=== PATIENT | male | born 1990 | race Caucasian/White ===

== ENCOUNTER 2017-01-03 07:45 | Emergency (ER) | payer OTHER ==
[~2017-01-03] VITALS: Ht 177.8 cm; Wt 113.0 kg
[2017-01-03 07:50] VITALS: Ht 177.8 cm; Wt 113.0 kg
[2017-01-03] MEDS ORDERED: KETOROLAC 30 MG INJ IM STA (08:08)
[2017-01-03] MEDS ORDERED: predniSONE 20 MG TAB PO ONE (08:30)
--- NOTE | 2017-01-03 09:09 | RADRPT ---
PROCEDURE: XR L-Spine. CLINICAL INDICATION: Low back pain. TECHNIQUE: AP, lateral, and cone down views of the lumbar spine were obtained. COMPARISON: None FINDINGS: The lumbar lordosis is maintained. The vertebral body and disk space heights are normal. No acute fracture or subluxation is seen. No paravertebral soft tissue abnormality is seen. IMPRESSION: Unremarkable lumbar spine series. RPTAT: HPNM Physician Felisa Date Time Electronically viewed and signed by Rohan Stack Physician on 01/03/2017 09:08 /
--- NOTE | 2017-01-03 09:42 | ERD ---
ER Documentation Chief Complaint Date/Time DATE: 01/03/17 TIME: 09:37 Chief Complaint BACK PAIN X 1 MONTH , WORSE TODAY HPI This is a 26-year-old male who presents to the emergency department today complaining of low back pain for the past month that got worse last night. Patient states he has numbness into his buttock. Patient states that one month ago he was at a [employer] and "felt a pinch". He also states he has some numbness there. States his pain is worse with sitting. Denies any fevers or chills, loss of bowel or bladder control. He has not taken any medication for the pain. ROS All systems reviewed and are negative except as per history of present illness. Medications Home Meds Active Scripts Cyclobenzaprine Hcl* (Cyclobenzaprine Hcl*) 10 Mg Tablet, 10 MG PO QHS, #7 TAB Prov:DOMINIC PAUL PA-C 01/03/17 Methylprednisolone* (Medrol* DOSE PACK) 4 Mg/Dose-Pack Tab.ds.pk, 4 MG PO . DIRECTED, #7 PACKET take as directed Prov:DOMINIC PAUL PA-C 01/03/17 Naproxen* (Naprosyn*) 500 Mg Tablet, 500 MG PO BID Y for PAIN AND/OR INFLAMMATION, #30 TAB Prov:DOMINIC PAUL PA-C 01/03/17 Hydrocodone/Acetaminophen ([place] 5-325 Tablet) 1 Each Tablet, 1 TAB PO Q6H Y for PAIN, #12 TAB Prov:DOMINIC PAUL PA-C 01/03/17 Allergies Allergies: Coded Allergies: No Known Allergy (Unverified , 01/03/17) PMhx/Soc Medical and Surgical Hx: pt denies Medical Hx, pt denies Surgical Hx Hx Alcohol Use: No Hx Substance Use: No Hx Tobacco Use: No Smoking Status: Never smoker Physical Exam Vitals Vital Signs Date Time Temp Pulse Resp B/P Pulse Ox O2 Delivery O2 Flow Rate FiO2 01/03/17 07:50 97.8 110 18 155/89 99 Physical Exam Const: Obese, no acute distress Head: Atraumatic Eyes: Normal Conjunctiva ENT: Normal External Ears, Nose and Mouth. Neck: Full range of motion..~ No meningismus. Resp: Clear to auscultation bilaterally Cardio: Regular rate and rhythm, no murmurs Skin: No petechiae or rashes Back: Lumbar spine midline tenderness. Bilateral paraspinal tenderness. Pain with straight leg raise of left leg. Pulses 2+. Distal neurovascularly intact. Good sensation. Ext: No cyanosis, or edema Neur: Awake and alert Psych: Normal Mood and Affect Results 24 hrs Current Medications Medications (Trade) Dose Ordered Sig/Pantera Route PRN Reason Start Time Stop Time Status Last Admin Dose Admin Ketorolac Tromethamine (Toradol) 30 mg ONCE STAT IM 01/03/17 08:08 01/03/17 08:10 DC 01/03/17 08:15 Prednisone (Prednisone) 60 mg ONCE ONCE PO 01/03/17 08:30 01/03/17 08:31 DC 01/03/17 08:14 Acetaminophen/ Hydrocodone Bitart ([place] (5/325)) 1 tab ONCE ONCE PO 01/03/17 10:00 01/03/17 10:01 Procedures/MDM This a 26-year-old male who presents to the emergency department today complaining of low back pain for the past month as well as some numbness down into his buttock. Patient was having some radicular symptoms and therefore did obtain lumbar spine films. Lumbar spine film is unremarkable. Vertebral body and disc space heights are normal. There is no acute fracture dislocation. Patient is afebrile and otherwise well-appearing. He has no loss of bowel or bladder control and have low suspicion for abscess or cauda equina syndrome Patient symptoms at this time is consistent with sprain versus strain versus disc pathology. Patient also has sciatica. Patient was given Toradol and oral prednisone here in the emergency department. Patient indicated pain had improved but it was still persistent. Patient was then given a [place]. Patient will be given a prescription for Naprosyn, [place], short course of prednisone and Flexeril for home. He is instructed to follow- up with a primary care physician for referral to orthopedics. At this time the patient is stable for discharge and outpatient management. Patient should follow up with their PCP in the next 1-2 days. They may return to the emergency department sooner for any persistent or worsening of symptoms. Patient understood and agreed with the plan. Departure Diagnosis: Primary Impression: Injury of back Encounter type: initial encounter Qualified Code: S39.92XA - Injury of back , initial encounter Condition: Fair PROUSE,DOMINIC M. PA-C Jan 03, 2017 09:41
[2017-01-03] MEDS ORDERED: NAPR-260 PO (09:52)
[2017-01-03] MEDS ORDERED: HYDR-906 PO (09:52)
[2017-01-03] MEDS ORDERED: MED4DP PO (09:53)
[2017-01-03] MEDS ORDERED: CYCL-319 PO (09:54)
[2017-01-03] MEDS ORDERED: HYDROCODONE/APAP (5/325) TAB PO ONE (10:00)
== END 2017-01-03 10:04 | disposition home or self-care (01) ==
LOC: FTE 07:45
DX: S39.92XA Unspecified injury of lower back, initial encounter (principal); X58.XXXA Exposure to other specified factors, initial encounter; Y92.9 Unspecified place or not applicable
CPT/HCPCS: 72100; 96372; J1885; J7512; Z7502; Z7610

== ENCOUNTER 2018-06-08 22:03 | Emergency (ER) | END 2018-06-09 02:07 | disposition home or self-care (01) ==

== ENCOUNTER 2018-11-07 19:26 | Emergency (ER) | payer OTHER ==
[~2018-11-07] VITALS: Wt 126.6 kg
[~2018-11-07 19:26] MED LIST: BACI28.34 TOP; CYCL10TA7 PO; ELIM TOP; HYDR-4011 PO; MED4DP PO; NAPR-985 PO
[2018-11-07] MEDS ORDERED: CIPR7.5D LEFT EAR (22:00)
[2018-11-07] MEDS ORDERED: AMOX1TAB10 PO (22:00)
[2018-11-07 22:50] VITALS: BP 136/82; PULSE 76; RESP 18
--- NOTE | 2018-11-08 01:37 | ERD ---
ER Documentation Chief Complaint Chief Complaint bib self, cc: left ear pain x 2 days HPI 27-year-old male presents emergency department complaining of left ear pain for the past 2 days. He denies any fevers. Denies any discharge. He has not taken any medications. Moderate in severity ROS All systems reviewed and are negative except as per history of present illness. Medications Home Meds Active Scripts Ciprofloxacin Hcl/Dexameth (Ciprodex Otic Suspension) 7.5 Ml Drops.susp, 4 DROP LEFT EAR BID for 7 Days, EA Prov:CHAVA REAL PA-C 11/07/18 Amoxicillin/Potassium Clav (Amox-Clav 875-125 mg Tablet) 875-125 mg Tab, 1 TAB PO BID for 10 Days, #20 TAB Prov:CHAVA REAL PA-C 11/07/18 Permethrin* (Elimite*) 5% Cr, 1 APPLIC TOP ONCE, #1 TUB Prov:CHRISTIAN SAINI PA-C 06/09/18 Bacitracin* (Bacitracin Zinc Oint*) 28.35 Gm Oint, 1 APPLIC TOP BID, #1 TUB APPLI TO Prov:CHRISTIAN SAINI PA-C 06/09/18 Cyclobenzaprine Hcl* (Cyclobenzaprine Hcl*) 10 Mg Tablet, 10 MG PO QHS, #7 TAB Prov:DOMINIC PAUL PA-C 01/03/17 Methylprednisolone* (Medrol* DOSE PACK) 4 Mg/Dose-Pack Tab.ds.pk, 4 MG PO . DIRECTED, #7 PACKET take as directed Prov:DOMINIC PAUL PA-C 01/03/17 Naproxen* (Naprosyn*) 500 Mg Tablet, 500 MG PO BID PRN for PAIN AND/OR INFLAMMATION, #30 TAB Prov:DOMINIC PAUL PA-C 01/03/17 Hydrocodone/Acetaminophen ([place] 5-325 Tablet) 1 Each Tablet, 1 TAB PO Q6H PRN for PAIN, #12 TAB Prov:DOMINIC PAUL PA-C 01/03/17 Allergies Allergies: Coded Allergies: No Known Allergy (Unverified , 01/03/17) PMhx/Soc Medical and Surgical Hx: pt denies Medical Hx, pt denies Surgical Hx History of Surgery: Yes (knee) Hx Alcohol Use: No Hx Substance Use: No Hx Tobacco Use: No Smoking Status: Never smoker Physical Exam Vitals Vital Signs Date Temp Pulse Resp B/P (MAP) Pulse Ox O2 O2 Flow FiO2 Time Delivery Rate 11/07/18 98.7 76 18 136/82 99 Room Air 22:50 (100) 11/07/18 97.8 108 19 129/72 100 19:30 (91) Physical Exam Const: No acute distress Head: Atraumatic Eyes: Normal Conjunctiva ENT: bulging tympanic membrane in the left ear. normal nose and Mouth. Neck: Full range of motion. No meningismus. Resp: Clear to auscultation bilaterally Cardio: Regular rate and rhythm, no murmurs Abd: Soft, non tender, non distended. Normal bowel sounds Skin: No petechiae or rashes Back: No midline or flank tenderness Ext: No cyanosis, or edema Neur: Awake and alert Psych: Normal Mood and Affect Procedures/MDM 27-year-old male presents with left ear pain likely to be otitis media. No evidence of mastoiditis. No evidence of ruptured tympanic membrane. Patient was given prescription for Augmentin. Patient stable to be discharged home with return precautions. Departure Diagnosis: Primary Impression: Otitis media Condition: Stable Patient Instructions: Otitis Media, Abx Tx (Adult) Additional Instructions: FOLLOW UP WITH YOUR PRIMARY CARE PHYSICIAN TOMORROW.Return to this facility if you are not improving as expected. Take all medicines as directed.]]]Return to this facility if you are not improving as expected. CHAVA REAL PA-C Nov 08, 2018 01:37
== END 2018-11-07 22:50 | disposition home or self-care (01) ==
LOC: FTE 19:26
DX: H66.92 Otitis media, unspecified, left ear (principal)
CPT/HCPCS: 99283

== ENCOUNTER 2019-09-02 11:41 | Emergency (ER) | payer OTHER ==
[~2019-09-02] VITALS: Ht 175.3 cm; Wt 127.3 kg
[~2019-09-02 11:41] MED LIST changes: +AMOX1TAB10 PO; +CIPR7.5D LEFT EAR
[2019-09-02 11:45] VITALS: Ht 175.3 cm; Wt 127.3 kg
[2019-09-02] MEDS ORDERED: KETOROLAC 60 MG INJ IM STA (12:01)
[2019-09-02] MEDS ORDERED: DIAZEPAM 5 MG TAB PO ONE (12:30)
[2019-09-02] MEDS ORDERED: DEXAMETHASONE 10 MG/ML 1 ML INJ IM ONE (12:30)
[2019-09-02 13:46] VITALS: BP 130/78; PULSE 63; RESP 20
== END 2019-09-02 13:48 | disposition home or self-care (01) ==
LOC: FTE 11:41
DX: M54.5 Low back pain (principal)
CPT/HCPCS: 72100; 96372; J1100; J1885; Z7502; Z7610